=== PATIENT | female | born 1970 | race Caucasian/White ===

== ENCOUNTER 2019-09-04 11:46 | Emergency (ER) | payer BC ==
[2019-09-04 13:28] VITALS: BP 148/76
--- NOTE | 2019-09-04 13:42 | UC ---
Throat Pain/Nasal Jose J HPI - HPI Summary HPI Summary: 2 day hx of increasing pain in the right sinus and right nares, without fever or associated dental pain. No visual symptoms, no diplopia. She has had a recent cold sore and upper lip swelling, increased after applying lip balm last week. No cough, sore throat, or sinus drainage. - History of Current Complaint Chief Complaint: UCGeneralIllness Stated Complaint: SINUS COMPLAINT Time Seen by Provider: 09/04/19 13:32 Hx Obtained From: Patient Onset/Duration: Sudden Onset, Lasting Hours Severity: Moderate Pain Intensity: 4 Cough: None Associated Signs & Symptoms: Positive: Negative - Epiglottits Risk Factors Epiglottis Risk Factors: Negative - Allergies/Home Medications Allergies/Adverse Reactions: Allergies Allergy/AdvReac Type Severity Reaction Status Date / Time No Known Allergies Allergy Verified 09/04/19 13:28 Home Medications: Home Medications Benazepril HCl 20 mg PO DAILY 09/04/19 [History Confirmed 09/04/19] Iron 90 mg PO DAILY 09/04/19 [History Confirmed 09/04/19] Metoprolol Tartrate TAB* [Lopressor TAB*] 100 mg PO DAILY 09/04/19 [History Confirmed 09/04/19] PMH/Surg Hx/FS Hx/Imm Hx Cardiovascular History: Hypertension - Surgical History Surgical History: Yes Surgery Procedure, Year, and Place: x 2 - Family History Known Family History: Positive: Non-Contributory - Social History Alcohol Use: Occasionally Substance Use Type: None Smoking Status (MU): Never Smoked Tobacco Review of Systems All Other Systems Reviewed And Are Negative: Yes Constitutional: Positive: Negative ENT: Negative: Dental Pain, Sore Throat, Ear Ache, Nasal Discharge Respiratory: Positive: Negative. Negative: Cough Neurological/Mental Status: Positive: Negative. Negative: Headache Psychological: Positive: Negative Is Patient Immunocompromised?: No Physical Exam Triage Information Reviewed: Yes Appearance: Well-Appearing, Pain Distress - mild, Obese Vital Signs: Initial Vital Signs Temp 98.8 F 09/04/19 13:22 Pulse 65 09/04/19 13:22 Resp 18 09/04/19 13:22 BP 148/76 09/04/19 13:22 Pulse Ox 100 09/04/19 13:22 Eye Exam: Other - TINO Eyes: Positive: Conjunctiva Clear ENT Exam: Other - mild upper lip and left facial swelling. Mild rosacea. Percussive tenderness right maxillary sinus. ENT: Positive: Pharynx normal. Negative: Nasal drainage - nasal mucosa normal Dental Exam: Normal Dental: Negative: Percussion Tenderness @ Respiratory: Positive: Lungs clear, Normal breath sounds Cardiovascular: Positive: RRR, No Murmur Musculoskeletal Exam: Normal Neurological Exam: Normal Psychological Exam: Normal Skin Exam: Normal Throat Pain/Nasal Course/Dx - Course Course Of Treatment: discussed mild facial swelling--possible early cellulitis from blister on lip vs early sinusitis. Would also consider possible zoster given distribution. - Differential Dx/Diagnosis Differential Diagnosis/HQI/PQRI: Pharyngitis, Sinusitis, Other - cellulitis, zoster Provider Diagnosis: Sinusitis Discharge ED - Sign-Out/Discharge Documenting (check all that apply): Patient Departure All imaging exams completed and their final reports reviewed: No Studies - Discharge Plan Condition: Stable Disposition: HOME Prescriptions: Amoxicillin/Clavulanate TAB* [Augmentin TAB 875*] 875 mg PO BID #14 tab Patient Education Materials: Sinusitis (ED) Referrals: Shereen Gloria MD [Primary Care Provider] - Additional Instructions: You are being given augmentin for treatment of sinusitis, possible early cellulitis of the left cheek. Another possibility is shingles (herpes zoster). If you develop red patches with blisters, please return for follow up assessment. Take the full course of treatment. Cotinue ibuprofen for relief of pain. Your blood pressure reading is bit high today, ensure that you have a repeat reading in 1-2 weeks. - Billing Disposition and Condition Condition: STABLE Disposition: Home
== END 2019-09-04 13:57 | disposition home or self-care (01) ==
LOC: UCCORT 11:46
DX: J32.9 Chronic sinusitis, unspecified (principal); I10 Essential (primary) hypertension; Z79.899 Other long term (current) drug therapy
CPT/HCPCS: 99202; G0463